=== PATIENT | female | born 1995 | race Two or more races ===

== ENCOUNTER 2025-08-17 13:28 | Emergency (ER) | payer MEDICAID, SELFPAY ==
[2025-08-17 13:48] VITALS: BP 125/79; PULSE 72; RESP 18; TEMP 36.7; O2SAT 99; BMI 25.7
--- NOTE | 2025-08-17 14:13 | PD.EDRME ---
Rapid Medical Screening Exam RME Arrival date/time: 08/17/25 13:28 Chief Complaint: Psychiatric Symptoms Time Seen by Provider: 08/17/25 14:01 Vital signs: Vital Signs Temperature 98.1 F 08/17/25 13:48 Pulse Rate 72 08/17/25 13:48 Respiratory Rate 18 08/17/25 13:48 Blood Pressure 125/79 08/17/25 13:48 Pulse Oximetry (%) 99 08/17/25 13:48 Oxygen Delivery Method Room Air 08/17/25 13:48 RME Narrative: 30-year-old female got off antidepressants 3 weeks ago. States brought in by significant other for suicidal ideation. States attempted a while back was taken to [facility] but only For a day. States she stopped the medication because she thought the depression had gone away at this time. Having urges of cutting her wrists again like she did a while back. Exam: tearful Clinical Impression: suicidal vs. depression
--- NOTE | 2025-08-17 14:33 | PC.CC ---
Intel Recruiter, Orly notified by interim controller-Alicia that patient will need a mental health evaluation. At this time, patient is pending medical clearance.
--- NOTE | 2025-08-17 14:56 | EDNOTE_ITS ---
ED Psych RME/HPI General Chief Complaint: Psychiatric Symptoms Stated Complaint: Having suicidal thoughts, stopped taking meds Time Seen by Provider: 08/17/25 14:01 Arrival date/time: 08/17/25 13:28 Limitations: no limitations RME / HPI RME / HPI Narrative: 30-year-old female got off antidepressants 3 weeks ago. States brought in by significant other for suicidal ideation. States attempted a while back was ta paramjit to [facility] but only For a day. States she stopped the medication because she thought the depression had gone away at this time. Having urges of cutting her wrists again like she did a while back. DR. DEJESUS MAIN ED EVALUATION: 30-year-old female presents with a 4 day onset of suicidal ideation. She reports that her plan was to use a knife but she called her boyfriend instead. She states she had a similar episode about a year ago when she cut her left wrist and was taken to [facility] but was only admitted for one day. She has a history of depression. She denies visual or auditory hallucinations and denies homicidal ideation. She reports she stopped taking her antidepressants 3 weeks ago because she felt her depression had resolved at that time. She now reports urges to cut her wrists again like she did previously. Her last menstrual period was one week ago. She has no allergies. She lives with her children and arrived with her boyfriend. No other complaints. Related Data Previous Rx's ?Medication ?Instructions ?Recorded vitamin-ferrous fumarate 1 tab PO QDAY 30 day s #30 tabs 09/24/22 28 mg iron-folic acid 800 mcg tablet ( Vitamins with Minerals) ciprofloxacin HCl 0.3 % eye drops See Rx Instructions ophthalmic 06/15/24 (eye) .COMPLEX #5 mL Allergies Allergy/AdvReac Type Severity Reaction Status Date / Time No Known Allergies Allergy Verified 08/17/25 13:33 Review of Systems Review of Systems Systems Reviewed: All systems reviewed, normal except as documented Past Medical History Past Medical History REPRODUCTIVE: Positive Gonorrhea (2020) and Previous Pregnancies (X4) HEMATOLOGIC: Positive Blood Disorders and Anemia OTHER HISTORY: Positive Hospitalization Surgical History SURGICAL: Positive Section (X3) Social History SMOKING STATUS: Never smoker SUBSTANCE USE: does not use ALCOHOL: Never ED Exam General Limitations: Present no limitations General appearance: Present alert and in no apparent distress Head Head exam: Present atraumatic, normocephalic and normal inspection Eye Eye exam: Present normal appearance, PERRL and EOMI ENT ENT exam: Present normal exam, normal oropharynx and mucous membranes moist Neck Neck exam: Present normal inspection, full ROM and trachea midline Chest Chest inspection: Present normal inspection and symmetric chest wall rise Respiratory Respiratory exam: Present normal lung sounds bilaterally Cardiovascular Cardiovascular exam: Present regular rate, normal rhythm and normal heart sounds Abdominal Exam Abdominal exam: Present soft and normal bowel sounds Extremities Exam Extremities exam: Present normal inspection and full ROM Back Exam Back exam: Present normal inspection and full ROM Neurological Exam Neurological exam: Present alert, oriented X3 and CN II-XII intact Psychiatric Psychiatric exam: Present normal affect, normal mood and other (cooperative; expresses suicidal ideation without hallucinations) Skin Skin exam: Present warm, dry, intact and normal color Course Quality Measures none Orders Category Date Time Status Consult [employer] Ro[employer]er NOW Care 08/17/25 15:39 Active One-to-one observation NOW Care 08/17/25 17:16 Active Suicide precautions NOW Care 08/17/25 15:27 Active Alcohol, Blood Medical Stat Lab 08/17/25 14:34 Completed CBC [CBC] Stat Lab 08/17/25 14:34 Completed CMP [Comprehensive Metabolic Panel] Stat Lab 08/17/25 14:34 Completed Drug Screen,Urine Stat Lab 08/17/25 14:40 Completed HCG,Qualitative Serum Stat Lab 08/17/25 14:34 Completed UA, C/S IF [Urinalysis, C/S if Indicated] Stat Lab 08/17/25 14:54 Ordered Reevaluation(s) Reevaluation #1: Patient is medically cleared for psych evaluation. Time: 15:40 Vital Signs Vital signs: Vital Signs Temperature 98.1 F 08/17/25 13:48 Pulse Rate 72 08/17/25 13:48 Respiratory Rate 18 08/17/25 13:48 Blood Pressure 125/79 08/17/25 13:48 Pulse Oximetry (%) 99 08/17/25 13:48 Oxygen Delivery Method Room Air 08/17/25 13:48 Psych MDM Narrative MDM Narrative:: ITaty, am scribing for and in the presence of Dr. Dejesus. 30-year-old female with suicidal ideation for 4 days after stopping antidepressants 3 weeks ago. No hallucinations or homicidal ideation. Exam normal. Differential diagnoses include depression, medication withdrawal, and adjustment disorder. Impression is depression with suicidal ideation and no psychosis. Labs and medical work up planned to medically clear for psychiatric evaluation. Plan is for psychiatric work up and clearance for psychiatric evaluation. Patient remains cooperative and safe under supervision. 1540: Patient is medically cleared for psych evaluation. 1800: Patient was signed out to Dr. Crane. Past medical, surgical, social and family history reviewed. Vitals and home medications reviewed. Results and treatment plan discussed. They will assume the care of the patient at this time and will follow the patient, pending mental health evaluation. Patient data External records reviewed:: [facility] previous records Clinical information provided by:: patient and spouse (boyfriend) Social determinants that could affect healthcare access:: mental health Patient has the following chronic illnesses:: depression How is presenting disease/condition affected by chronic disease/condition?: caused by Evaluation data The following diagnostics were reviewed and interpreted by me:: lab results Lab and/or radiology exams considered but not ordered:: none Interpretation Summary: See MDM narrative above. Medications / Prescriptions Medications or Prescriptions considered but not ordered:: none Medication administrations:: see above if any Consultations Consultation(s) initiated? (list below): No Diagnosis Psych Differential Diagnosis: other (depression, medication withdrawal, and adjustment disorder) Most likely diagnosis given after review of the tests above:: Depression Admission Indicated Admission indicated?: not indicated Admission Request Was there a request for admission?: No Disposition Plan Disposition Plan: other (specify) (Patient signed out to Dr. Crane.) Dis[facility] Prescriptions/Referrals Prescriptions/Med Rec: No Action vit-iron fum-folic ac [ Vitamin with Minerals] 28 mg iron- 800 mcg Tablet 1 tab PO QDAY 30 Days Qty: 30 0RF ciprofloxacin HCl 0.3 % drops See Rx Instructions .ROUTE .COMPLEX Qty: 5 0RF Rx Instructions: put 1-2 drps in affected eye(s) every 2hr up to 8 times/day x2days; then 4 times/day x5days Problem List Clinical Impression: Suicidal ideation, Depression Patient/Caregiver Discharge Instructions Print Language: Greenlandic Stand Alone Forms: [employer] Award Info., Patient Portal Info Letter
[2025-08-17 15:03] LABS: Amphetamine/Methamp Scrn,U Negative (Negative); Barbiturate Screen,Urine Negative (Negative); Benzodiazepines Screen,Urine Negative (Negative); Benzoylecgonine Screen, Ur Negative (Negative); Fentanyl Screen,Urine Negative (Negative); Opiate Screen,Urine Negative (Negative); THC Screen,Urine Negative (Negative)
[2025-08-17 15:09] LABS: Alcohol, Blood Medical < 3.0 mg/dL (0-10.0)
[2025-08-17 15:28] LABS: Basophils # (Auto) 0.1 Thou/mm3 (0.0-0.2); Basophils % (Auto) 1 % (0-2.5); Eosinophils # (Auto) 0.0 Thou/mm3 (0.0-0.5); Eosinophils % (Auto) 0 % (0-10); Hematocrit 39.2 % (36.0-46.0); Hemoglobin 12.7 g/dL (12.0-16.0); Immature Granulocytes Auto 0.04 Thou/mm3 (0.00-0.00); Lymphocytes # (Auto) 2.0 Thou/mm3 (1.0-4.8); Lymphocytes % (Auto) 18 % (10-50); Mean Corpuscular HGB Conc 32.4 g/dl (31.0-37.0); Mean Corpuscular Hemoglobin 26.7 pg (25.0-35.0); Mean Corpuscular Volume 83 fL (80-100); Monocytes # (Auto) 0.4 Thou/mm3 (0.0-0.8); Monocytes % (Auto) 4 % (0-12); Neutrophils # (Auto) 8.3 Thou/mm3 (1.8-7.7); Neutrophils % (Auto) 77 % (37-80); Nucleated Red Blood Cell # 0.00 Thou/mm3 (0.00-0.00); Nucleated Red Blood Cell % 0 /100 WBC (0); Platelet Count 287 Thou/mm3 (140-440); RDW Standard Deviation 46.7 fL (36.4-46.3); Red Blood Count 4.75 Miln/mm3 (4.00-5.20); White Blood Count 10.8 Thou/mm3 (3.6-11.0)
[2025-08-17 15:29] LABS: HCG,Qualitative Serum Negative
[2025-08-17 15:33] LABS: Alanine Aminotransferase 12 U/L (10-49); Albumin, Serum 4.1 gm/dL (3.5-5.0); Albumin/Globulin Ratio 2.0 (1.2-2.2); Alkaline Phosphatase 47 U/L (46-116); Anion Gap 9 (7-16); Aspartate Amino Transferase 19 U/L (0-34); BUN/Creatinine Ratio 23 Ratio (12-20); Bilirubin,Total 0.4 mg/dL (0.3-1.2); Blood Urea Nitrogen 14 mg/dL (9-23); Calcium 8.7 mg/dL (8.3-10.6); Calcium (Corrected) 8.7 mg/dL (8.5-10.1); Carbon Dioxide 24.9 mMol/L (20.0-31.0); Chloride 107 mMol/L (98-107); Creatinine (Component) 0.6 mg/dL (0.6-1.3); Estimated Creatinine Clearance 123.9 mL/min (>60); Globulin 2.1 gm/dL (2.3-3.5); Glucose 100 mg/dL (74-106); Osmolality,Calculated 281 (275-295); Potassium 3.6 mMol/L (3.4-5.1); Sodium 141 mMol/L (136-145); Total Protein 6.2 gm/dL (5.7-8.2); eGFR > 60 See Note
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
[2025-08-17 18:17] VITALS: BP 109/72; PULSE 81; RESP 18; TEMP 36.9; O2SAT 100
--- NOTE | 2025-08-17 18:44 | PD.EDADDENDU ---
Emergency Room Addendum Addendum Narrative: I took over the care from previous shift physician, Dr. Dejesus, at 6 PM on 08/17/2025. See previous notes for complete H & P and ED course. I reviewed all diagnostic test results. Blood tests and urine tests unremarkable. Diagnoses include: Depression with suicidal ideation Patient is medically cleared for psychiatric care. Waiting for evaluation by our ED health care specialist and possible inpatient psychiatric placement. At 6 AM on 08/18/2025, the care of the patient was transferred to Dr. Dejesus. During my watch, the patient remained stable. Polo Crane MD
[2025-08-17 19:28] VITALS: BP 99/58; PULSE 71; RESP 18; TEMP 36.7; O2SAT 97
[2025-08-17 19:28] LABS: Collection Type, Urine Clean Catch
[2025-08-17 19:36] LABS: Bacteria,Urine 2+; Bilirubin,Urine Negative (Negative); Blood,Urine Negative (Negative); Clarity,Urine Turbid (Clear/Hazy); Color,Urine Yellow (Lt Yel-Yel); Culture Indicated,Urine Contaminated; Glucose, Urine Negative (Negative); Ketones,Urine 2+ (Negative); Leukocyte Esterase,Urine Negative (Negative); Nitrite,Urine Negative (Negative); PH,Urine 6.0 (5.0-7.0); Protein,Urine 1+ (Neg - Trace); Specific Gravity,Urine 1.036 (1.001-1.035); Squamous Epithelial Cell,Urine 11 /hpf (0-5); Urobilinogen,Urine Negative mg/dL (0.0-1.0)
[2025-08-17 19:37] LABS: RBC,Urine 3 /hpf (0-3); WBC,Urine 5 /hpf (0-5)
[2025-08-17 20:26] LABS: Acetaminophen 2.9 mcg/mL (10.0-20.0); Magnesium 1.8 mg/dL (1.6-2.6); Salicylate < 3.0 mg/dL; Thyroid Stimulating Hormone 0.77 uIU/mL (0.55-4.78)
[2025-08-17 23:33] VITALS: BP 91/58; PULSE 84; RESP 17; TEMP 37.1; O2SAT 98
[2025-08-18 06:03] VITALS: BP 104/67; PULSE 81; RESP 18; TEMP 36.8; O2SAT 99
[2025-08-18 08:15] VITALS: BP 119/79; PULSE 82; RESP 16; TEMP 37.1; O2SAT 98
--- NOTE | 2025-08-18 08:36 | PC.NURSE ---
social worker school at bedside
--- NOTE | 2025-08-18 09:22 | EDNOTE_ITS ---
Emergency Room Addendum Addendum Narrative: 0600: Care assumed from Dr. Crane, the previous shift emergency physician. Past medical, surgical, social and family history reviewed. Vitals and home medications reviewed. I will assume the care of the patient at this time, pending mental health evaluation and final disposition. Please refer to the emergency department record for history and examination from initial visit.? Physical exam by me shows patient under no acute distress at this time. 1100: Mental health is going to keep the hold since there is no safety plan. Patient will be alone for 3 days and is afraid of grabbing the knife. Boyfriend is not going to be present, they are not really together anymore. 1430: Patient has been accepted to [facility]. ETA is 1600 hours. 1600: EMS here to pick the patient and transport to [facility].
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
[2025-08-18 10:48] VITALS: BP 96/59; PULSE 66; RESP 18; O2SAT 98
[2025-08-18 12:38] VITALS: BP 110/72; PULSE 74; RESP 16; TEMP 37.3; O2SAT 99
--- NOTE | 2025-08-18 13:34 | PC.NURSE ---
Grzegorz Lomeli [facility] in [place] has accepted the patient , transport to be scheduled for transport
[2025-08-18 14:55] VITALS: BP 95/60; PULSE 96; RESP 18; TEMP 37.2; O2SAT 97
--- NOTE | 2025-08-18 15:32 | PC.NURSE ---
report given to EMT at this time for transfer to [facility]
[2025-08-18 15:38] VITALS: PULSE 96; RESP 18; O2SAT 97
== END 2025-08-18 15:40 ==
PROVIDERS: Physician Assistant; Emergency Provider Emergency Medicine
DX: R45.851 Suicidal ideations (principal); F32.A Depression, unspecified; Z91.128 Patient's intentional underdosing of medication regimen for other reason; Z75.1 Person awaiting admission to adequate facility elsewhere
CPT/HCPCS: 36415; 80053; 80307; 80320; 80329; 81001; 83735; 84443; 84703; 85025; 96127; 99284; G0480